=== PATIENT | male | born 1975 | race Caucasian/White ===

== ENCOUNTER 2025-05-29 04:01 | Emergency (ER) | payer BC, OTHER ==
[~2025-05-29] VITALS: Ht 172.7 cm; Wt 82.3 kg
--- NOTE | 2025-05-29 04:28 | ED.PDOC ---
History of Present Illness HPI Comments 50-year-old male with a history of GERD, kidney stones and skin cancer in remission brought in by family complaining of left-sided abdominal pain radiating to the left flank, onset around 2:30 a.m., associated with nausea. Pain is severe despite IM Toradol administered by family. He denies any fever, vomiting, diarrhea, constipation, dysuria or hematuria. Time Seen by MD: 04:16 Allergies: Coded Allergies: NO KNOWN ALLERGIES (Unverified , 05/29/25) Home Meds Active Scripts Tamsulosin Hcl (Flomax) 0.4 Mg Cap, 1 CAP PO DAILY, #14 CAP 11 Refills One p.o. daily, 30 minutes after same meal. Take until pain resolves. Prov:VIVEK PELLETIER MD 05/29/25 Hydrocodone-Acetaminophen (Hydrocodone Bitartrate/AC 5-325 mg) 1 Tab Tab, 1-2 TAB PO Q6HP PRN, #30 TAB Prn pain Prov:VIVEK PELLETIER MD 05/29/25 Ibuprofen (Ibuprofen) 800 Mg Tab, 800 MG PO Q8HP PRN, #30 TAB Prn pain. Take with food. Prov:VIVEK PELLETIER MD 05/29/25 Past Medical History PAST MEDICAL HISTORY: GERD, Kidney Stones Past Medical History (Other): Right inguinal hernia, hiatal hernia, finding of right kidney hematoma on imaging performed 2 months ago at another facility Surgical History (Other): ACL repair, lithotripsy Family History Family History: Reviewed,noncontributory to illness Social History Smoker: Non-Smoker Alcohol: Denies ETOH Use Drugs: Denies Drug Use Lives In: Home All Other Systems: Reviewed and Negative (Comprehensive systems review obtained and negative except for what is stated in the HPI.) Physical Exam General Appearance: Mild Distress HEENT: Other (Pupils and face symmetric. Moist mucous membranes.) Neck: Full Range of Motion, Normal Inspection Respiratory: Lungs Clear, No Accessory Muscle Use, No Respiratory Distress, Normal Breath Sounds Cardiovascular: No Edema, No JVD, Regular Rate/Rhythm Breast Exam: Deferred Gastrointestinal: Soft, Other (Pain is localized to right mid abdominal and right flank areas. Palpation of these areas does not change the pain.) Genitalia: Deferred Pelvic: Deferred Rectal: Deferred Extremities: Normal inspection, Normal range of motion, Non-tender, No pedal edema Neurologic: Alert (Oriented x4), Normal Affect, Normal Mood, Other (Ambulatory) Cerebellar Function: NOT DONE Reflexes: NOT DONE Skin: Dry, Normal Color, Warm Lymphatic: NOT DONE Was a procedure done? Was a procedure done?: No Differential Dx Considerations may include: Kidney stone with colic, gastritis, enteritis, constipation, bowel obstruction, ileus, UTI, among others X-Ray, Labs, Meds, VS Vital Signs Date Time Temp Pulse Resp B/P (MAP) Pulse Ox O2 Delivery O2 Flow Rate FiO2 05/29/25 05:19 68 14 97 Room Air* 0 21 05/29/25 05:18 97.8 68 14 157/110 (126) 97 97.8 05/29/25 05:04 70 18 135/82 05/29/25 04:41 97.7 67 18 137/92 (107) 95 97.7 Lab Test 05/29/25 04:45 05/29/25 04:44 Range/Units White Blood Count 5.5 4.4-10.8 10^3/uL Red Blood Count 5.52 4.5-5.90 10^6/uL Hemoglobin 16.5 13.5-17.5 g/dL Hematocrit 47.6 41.0-53.0 % Mean Corpuscular Volume 86.3 80.0-100.0 fL Mean Corpuscular Hemoglobin 29.9 28.0-32.0 pg Mean Corpuscular Hemoglobin Concent 34.6 32.0-36.0 g/dL Red Cell Distribution Width 14.1 11.8-14.3 % Platelet Count 218 140-450 10^3/uL Mean Platelet Volume 6.8 L 6.9-10.8 fL Neutrophils (%) (Auto) 50.3 37.0-80.0 % Lymphocytes (%) (Auto) 37.4 10.0-50.0 % Monocytes (%) (Auto) 9.2 0.0-12.0 % Eosinophils (%) (Auto) 2.8 0.0-7.0 % Basophils (%) (Auto) 0.3 0.0-2.0 % Neutrophils # (Auto) 2.8 1.6-8.6 10 ^3/uL Lymphocytes # (Auto) 2.1 0.4-5.4 10 ^3/uL Monocytes # (Auto) 0.5 0-1.3 10 ^3/uL Eosinophils # (Auto) 0.2 0-0.8 10 ^3/uL Basophils # (Auto) 0 0-0.2 10 ^3/uL Nucleated Red Blood Cells 0.2 % Sodium Level 139 136-145 mmol/L Potassium Level 4.1 3.5-5.1 mmol/L Chloride Level 105 98-107 mmol/L Carbon Dioxide Level 26 20-31 mmol/L Anion Gap 8 5-15 Blood Urea Nitrogen 12 9-23 mg/dL Creatinine 1.11 0.700-1.30 mg/dL Glomerular Filtration Rate Calc 81 >90 mL/min BUN/Creatinine Ratio 10.8 10.0-20.0 Serum Glucose 104 74-106 mg/dL Calcium Level 9.3 8.7-10.4 mg/dL Total Bilirubin 0.6 0.2-1.0 mg/dL Aspartate Amino Transferase (AST) 34 13-40 U/L Alanine Aminotransferase (ALT) 55 H 7-40 U/L Alkaline Phosphatase 79 46-116 U/L Total Protein 7.3 5.7-8.2 g/dL Albumin 4.6 3.2-4.8 g/dL Urine Color Yellow Yellow Urine Clarity Clear Clear Urine pH 6.0 5.0-9.0 Urine Specific [place] 1.025 1.001-1.035 Urine Protein Negative Negative Urine Ketones Trace Negative Urine Blood 3+ H Negative /uL Urine Nitrite Negative Negative Urine Bilirubin Negative Negative Urine Urobilinogen Normal Negative mg/dL Urine Leukocyte Esterase Negative Negative /uL Urine RBC 292 0 - 3 /hpf Urine Microscopic WBC 1 0-3 /HPF Urine Squamous Epithelial Cells None seen <5 /hpf Urine Bacteria None seen None Seen /hpf Urine Mucus Few None Seen Urine Glucose Normal Normal mg/dL Current Medications Medications (Trade) Dose Ordered Sig/Gage Route Start Time Stop Time Status Last Admin Sodium Chloride 1,000 ml @ 1,000 mls/hr Q1H ONCE IV 05/29/25 04:30 05/29/25 05:29 DC 05/29/25 05:03 Morphine Sulfate 4 mg ONCE ONCE IV 05/29/25 04:30 05/29/25 04:31 DC 05/29/25 05:04 Ondansetron HCl (Zofran) 4 mg ONCE ONCE IV 05/29/25 04:30 05/29/25 04:31 DC 05/29/25 04:30 [place] [address] Ph: [phone] DIAGNOSTIC IMAGING Diagnostic Imaging Report : [id number] Signed PATIENT: CAPO FUENTES ACCT: [id number] UNIT: [id number] : 1975 LOC: ER ROOM / BED: / AGE / SEX: 50 / M ADM STATUS: REG ER SERVICE 042 ORDERING PHYSICIAN: VIVEK PELLETIER MD PROCEDURE(s): ABPL - CT AB PEL WO CON-NO ORAL OR IV REASON: L flank pain r/o stone ORDER NUMBER(s): [id number], ACCESSION NUMBER(s): [id number] EXAM: CT CT AB PEL WO CON-NO ORAL OR IV HISTORY: L flank pain r/o stone COMPARISON: None TECHNIQUE: Helical CT images of the abdomen and pelvis were performed without contrast. Sagittal and coronal reformatted images were obtained. This CT exam was performed using one or more of the following dose reduction techniques: Automated exposure control, adjustment of the mA and/or kV according to patient size, or use of iterative reconstruction technique. Radiation Dose: CT Abdomen/Pelvis: CTDIvol 11.4 mGy, DLP 174.74 mGy*cm. FINDINGS: Urinary tract: There is a left ureteropelvic junction 2 mm calculus with associated mild left hydronephrosis. No right renal or ureteral calculi, hydronephrosis, or hydroureter. No urinary bladder calculi. The urinary bladder is decompressed. The prostate is moderately enlarged. Miscellaneous: There is bilateral gynecomastia. The heart is not enlarged. The lung bases are clear. The spleen measures 12.8 cm longitudinal. The noncontrast liver, pancreas, gallbladder, and adrenal glands are unremarkable. There is a small fatty umbilical hernia. No abdominal aortic aneurysm. No abnormal bowel dilatation, free air, free fluid, or suspicious adenopathy. The appendix is not dilated and does not appear inflamed. There is small fatty right inguinal indirect hernia. There is lumbar degenerative disc disease and facet arthropathy with multilevel significant neural foraminal stenosis bilaterally. IMPRESSION: 1. Mild left hydronephrosis secondary to a 2 mm ureteropelvic junction calculus. 2. Mild splenomegaly. 3. Moderate prostatic enlargement. 4. Lumbar degenerative disc disease and facet arthropathy with multilevel significant neural foraminal stenosis bilaterally. Consider follow-up noncontrast MRI of the lumbar spine for better characterization on an outpatient basis, especially if the patient complains of lower extremity radicular symptoms. 5. No evidence of bowel obstruction, acute appendicitis, or other acute process in the abdomen or pelvis. X-Ray, Labs, Meds, VS Comment 50-year-old male with a history of GERD, kidney stones, skin cancer in remission, right inguinal and hiatal hernias brought in by family complaining of left-sided abdominal and flank pain Vitals remarkable for BP 137/92 Exam: Pain localized to left mid abdominal and flank areas. Palpation of these areas does not change the pain Rhythm strip independently interpreted by me: Sinus rhythm, rate 67, no ectopy. CT abdomen and pelvis IMPRESSION: 1. Mild left hydronephrosis secondary to a 2 mm ureteropelvic junction calculus. 2. Mild splenomegaly. 3. Moderate prostatic enlargement. 4. Lumbar degenerative disc disease and facet arthropathy with multilevel significant neural foraminal stenosis bilaterally. Consider follow-up noncontrast MRI of the lumbar spine for better characterization on an outpatient basis, especially if the patient complains of lower extremity radicular symptoms. 5. No evidence of bowel obstruction, acute appendicitis, or other acute process in the abdomen or pelvis. CBC and CMP unremarkable, UA positive for blood and RBCs Patient treated with the following in the ED: 1 L 0.9 normal saline IV bolus, morphine 4 mg IV, Zofran 4 mg IV, magnesium rider 2 g IV On re-evaluation, patient states pain has improved. Vitals were stable. Patient appears stable for discharge with close outpatient follow-up with his primary physician for referral to Urology. Alternatively, he will also be referred to Dr. Goldstein. Rx [place], ibuprofen, Flomax Time of 1ST Reevaluation: 04:32 Reevaluation 1ST: Unchanged Patient Education/Counseling: Diagnosis, Treatment, Need For Follow Up Family Education/Counseling: Diagnosis, Treatment, Need For Follow Up SEPSIS Sepsis Screen Physician Orders Ct Ab Pel Wo Con-No Oral Or Iv (05/29/25 04:22) Magnesium Sulfate 1gm/100ml (05/29/25 04:30) Vital Signs Date Time Temp Pulse Resp B/P (MAP) Pulse Ox O2 Delivery O2 Flow Rate FiO2 05/29/25 05:19 68 14 97 Room Air* 0 21 05/29/25 05:18 97.8 68 14 157/110 (126) 97 97.8 05/29/25 05:04 70 18 135/82 05/29/25 04:41 97.7 67 18 137/92 (107) 95 97.7 Laboratory Tests Test 05/29/25 04:45 White Blood Count 5.5 10^3/uL (4.4-10.8) Medications Medications Dose Ordered Sig/Gage Route Start Time Stop Time Status Last Admin Dose Admin Morphine Sulfate 4 mg ONCE ONCE IV 05/29/25 04:30 05/29/25 04:31 DC 05/29/25 05:04 Ondansetron HCl 4 mg ONCE ONCE IV 05/29/25 04:30 05/29/25 04:31 DC 05/29/25 04:30 Sodium Chloride 1,000 ml @ 1,000 mls/hr Q1H ONCE IV 05/29/25 04:30 05/29/25 05:29 DC 05/29/25 05:03 Departure 1 Departure Time of Disposition: 06:00 Impression: Primary Impression: Hydronephrosis concurrent with and due to calculi of kidney and ureter Disposition: 01 HOME / SELF CARE / HOMELESS Condition: Stable Referrals: JOHNATHAN GOLDSTEIN MD Additional Instructions: Your blood tests were unremarkable. Your urine test showed blood, consistent with what we see when kidney stones or passing. There was no evidence of a urine infection. Your CT scan showed that your passing a kidney stone. The report is enclosed below. I have prescribed medication for your symptoms. Follow-up with your primary doctor in 1-2 days for referral to an urologist for further evaluation. Alternatively, follow-up directly with Dr. Goldstein. [address] [address] Ph: [phone] DIAGNOSTIC IMAGING Diagnostic Imaging Report : [id number] Signed PATIENT: CAPO FUENTES ACCT: [id number] UNIT: [id number] : 1975 LOC: ER ROOM / BED: / AGE / SEX: 50 / M ADM STATUS: REG ER SERVICE 0422 ORDERING PHYSICIAN: VIVEK PELLETIER MD PROCEDURE(s): ABPL - CT AB PEL WO CON-NO ORAL OR IV REASON: L flank pain r/o stone ORDER NUMBER(s): [id number], ACCESSION NUMBER(s): [id number] EXAM: CT CT AB PEL WO CON-NO ORAL OR IV HISTORY: L flank pain r/o stone COMPARISON: None TECHNIQUE: Helical CT images of the abdomen and pelvis were performed without contrast. Sagittal and coronal reformatted images were obtained. This CT exam was performed using one or more of the following dose reduction techniques: Automated exposure control, adjustment of the mA and/or kV according to patient size, or use of iterative reconstruction technique. Radiation Dose: CT Abdomen/Pelvis: CTDIvol 11.4 mGy, DLP 174.74 mGy*cm. FINDINGS: Urinary tract: There is a left ureteropelvic junction 2 mm calculus with associated mild left hydronephrosis. No right renal or ureteral calculi, hydronephrosis, or hydroureter. No urinary bladder calculi. The urinary bladder is decompressed. The prostate is moderately enlarged. Miscellaneous: There is bilateral gynecomastia. The heart is not enlarged. The lung bases are clear. The spleen measures 12.8 cm longitudinal. The noncontrast liver, pancreas, gallbladder, and adrenal glands are unremarkable. There is a small fatty umbilical hernia. No abdominal aortic aneurysm. No abnormal bowel dilatation, free air, free fluid, or suspicious adenopathy. The appendix is not dilated and does not appear inflamed. There is small fatty right inguinal indirect hernia. There is lumbar degenerative disc disease and facet arthropathy with multilevel significant neural foraminal stenosis bilaterally. IMPRESSION: 1. Mild left hydronephrosis secondary to a 2 mm ureteropelvic junction calculus. 2. Mild splenomegaly. 3. Moderate prostatic enlargement. 4. Lumbar degenerative disc disease and facet arthropathy with multilevel significant neural foraminal stenosis bilaterally. Consider follow-up noncontrast MRI of the lumbar spine for better characterization on an outpatient basis, especially if the patient complains of lower extremity radicular symptom s. 5. No evidence of bowel obstruction, acute appendicitis, or other acute process in the abdomen or pelvis. e-Prescriptions Tamsulosin Hcl (Flomax) 0.4 Mg Cap 1 CAP PO DAILY, #14 CAP 11 Refills One p.o. daily, 30 minutes after same meal. Take until pain resolves. Prov: VIVEK PELLETIER MD 05/29/25 Hydrocodone-Acetaminophen (Hydrocodone Bitartrate/AC 5-325 mg) 1 Tab Tab 1-2 TAB PO Q6HP PRN, #30 TAB Prn pain Prov: VIVEK PELLETIER MD 05/29/25 Ibuprofen (Ibuprofen) 800 Mg Tab 800 MG PO Q8HP PRN, #30 TAB Prn pain. Take with food. Prov: VIVEK PELLETIER MD 05/29/25 Discharged With: Relative Critical Care Note Critical Care Time?: No Stability Stability form required: No Heart Score Heart Score: Heart Score Response (Comments) Value History N/A 0 EKG N/A 0 Age N/A 0 Risk Factors N/A 0 Troponin N/A 0 Total 0 VIVEK PELLETIER MD May 29, 2025 04:28
[2025-05-29] MEDS: ONDANSETRON HCL 4 MG/2 ML VIAL IV ONE (04:30)
[2025-05-29] MEDS: SODIUM CHLORIDE 0.9% 1,000 ML IV ONE (05:03)
[2025-05-29 05:04] LABS: Hematocrit 47.6 % (41.0-53.0); Hemoglobin 16.5 g/dL (13.5-17.5); Mean Corpuscular Hemoglobin 29.9 pg (28.0-32.0); Mean Corpuscular Volume 86.3 fL (80.0-100.0); Nucleated Red Blood Cells % 0.2 %
[2025-05-29] MEDS: MORPHINE SULFATE 4 MG/ML SYR/VIAL IV ONE (05:04)
[2025-05-29 05:07] LABS: Urine Protein, UAD Negative (Negative)
[2025-05-29] MEDS ORDERED: IBUP-1456 PO (05:12)
[2025-05-29] MEDS ORDERED: TAMS-35 PO (05:12)
[2025-05-29] MEDS ORDERED: HYDR-4902 PO (05:12)
[2025-05-29 05:18] VITALS: TEMP 97.8
[2025-05-29 05:19] VITALS: PULSE 68; RESP 14; O2SAT 97
[2025-05-29 05:21] LABS: Albumin 4.6 g/dL (3.2-4.8); Alkaline Phosphatase 79 U/L (46-116); Anion Gap 8 (5-15); BUN/Creatinine Ratio 10.8 (10.0-20.0); Blood Urea Nitrogen 12 mg/dL (9-23); Calcium 9.3 mg/dL (8.7-10.4); Carbon Dioxide 26 mmol/L (20-31); Chloride 105 mmol/L (98-107); Glucose 104 mg/dL (74-106); Potassium 4.1 mmol/L (3.5-5.1); Sodium 139 mmol/L (136-145); Total Protein 7.3 g/dL (5.7-8.2)
[2025-05-29 05:22] LABS: Bilirubin, Total 0.6 mg/dL (0.2-1.0)
[2025-05-29 05:29] LABS: Alanine Aminotransferase 55 U/L (7-40)
--- NOTE | 2025-05-29 06:04 | DVH ---
EXAM: CT CT AB PEL WO CON-NO ORAL OR IV HISTORY: L flank pain r/o stone COMPARISON: None TECHNIQUE: Helical CT images of the abdomen and pelvis were performed without contrast. Sagittal and coronal ref ormatted images were obtained. This CT exam was performed using one or more of the following dose red uction techniques: Automated exposure control, adjustment of the mA and/or kV according to patient si ze, or use of iterative reconstruction technique. Radiation Dose: CT Abdomen/Pelvis: CTDIvol 11.4 mGy, DLP 174.74 mGy*cm. FINDINGS: Urinary tract: There is a left ureteropelvic junction 2 mm calculus with associated mild left hydrone phrosis. No right renal or ureteral calculi, hydronephrosis, or hydroureter. No urinary bladder calc emil. The urinary bladder is decompressed. The prostate is moderately enlarged. Miscellaneous: There is bilateral gynecomastia. The heart is not enlarged. The lung bases are clear . The spleen measures 12.8 cm longitudinal. The noncontrast liver, pancreas, gallbladder, and adrenal glands are unremarkable. There is a small fatty umbilical hernia. No abdominal aortic aneurysm. No abnormal bowel dilatation, free air, free fluid, or suspicious adenopathy. The appendix is not dilat ed and does not appear inflamed. There is small fatty right inguinal indirect hernia. There is lumbar degenerative disc disease and facet arthropathy with multilevel significant neural foraminal stenosi s bilaterally. IMPRESSION: 1. Mild left hydronephrosis secondary to a 2 mm ureteropelvic junction calculus. 2. Mild splenomegaly. 3. Moderate prostatic enlargement. 4. Lumbar degenerative disc disease and facet arthropathy with multilevel significant neural foramina l stenosis bilaterally. Consider follow-up noncontrast MRI of the lumbar spine for better characteri zation on an outpatient basis, especially if the patient complains of lower extremity radicular sympt oms. 5. No evidence of bowel obstruction, acute appendicitis, or other acute process in the abdomen or pel vis.
[2025-05-29] MEDS: MAGNESIUM SULFATE 1GM/100ML 100 ML IV SCH (07:33)
[2025-05-29 08:05] VITALS: PULSE 63; RESP 14; O2SAT 95
[2025-05-29 08:59] VITALS: BP 109/75; PULSE 69; RESP 12
== END 2025-05-29 09:44 | disposition home or self-care (01) ==
LOC: ER 04:01
DX: N13.2 Hydronephrosis with renal and ureteral calculous obstruction (principal); K21.9 Gastro-esophageal reflux disease without esophagitis; Z98.890 Other specified postprocedural states; Z87.442 Personal history of urinary calculi; Z79.899 Other long term (current) drug therapy; Z85.828 Personal history of other malignant neoplasm of skin
CPT/HCPCS: 36415; 74176; 80053; 81001; 85025; 96361; 96365; 96366; 96375; 99285; J2270; J2405; J3475; J7030

== ENCOUNTER → 2025-07-29 | Outpatient (CLI) | payer BC ==
[~2025-07-29] MED LIST: HYDR-4902 PO; IBUP-1456 PO; TAMS-35 PO
[2025-07-29 09:16] LABS: Hematocrit 52.1 % (41.0-53.0); Hemoglobin 18.1 g/dL (13.5-17.5); Mean Corpuscular Hemoglobin 31.2 pg (28.0-32.0); Mean Corpuscular Volume 89.9 fL (80.0-100.0); Nucleated Red Blood Cells % 0.2 %
[2025-07-29 09:49] LABS: Albumin 4.7 g/dL (3.2-4.8); Alkaline Phosphatase 74 U/L (46-116); Anion Gap 5 (5-15); BUN/Creatinine Ratio 9.7 (10.0-20.0); Blood Urea Nitrogen 10 mg/dL (9-23); Calcium 9.6 mg/dL (8.7-10.4); Carbon Dioxide 30 mmol/L (20-31); Chloride 103 mmol/L (98-107); Glucose 95 mg/dL (74-106); Potassium 5.0 mmol/L (3.5-5.1); Sodium 138 mmol/L (136-145); Total Protein 7.9 g/dL (5.7-8.2); Triglycerides 145 mg/dL (< 150)
[2025-07-29 09:51] LABS: Alanine Aminotransferase 42 U/L (7-40); Bilirubin, Total 1.3 mg/dL (0.2-1.0); Cholesterol 203 mg/dL (< 200); HDL Cholesterol 39 mg/dL (40-59)
== END | disposition home or self-care (01) ==
LOC: LAB 08:38
PROVIDERS: ATTEND Internal Medicine
DX: E78.2 Mixed hyperlipidemia (principal); R94.4 Abnormal results of kidney function studies; R17 Unspecified jaundice
CPT/HCPCS: 36415; 80053; 80061; 85025

== ENCOUNTER 2025-08-13 07:30 | Day surgery (SDC) | payer BC ==
[2025-08-12 14:12] LABS: Hematocrit 50.3 % (41.0-53.0); Hemoglobin 17.3 g/dL (13.5-17.5); Mean Corpuscular Hemoglobin 30.8 pg (28.0-32.0); Mean Corpuscular Volume 89.3 fL (80.0-100.0); Nucleated Red Blood Cells % 0.0 %
[2025-08-12 14:26] LABS: INR 1.05 (0.9-1.15); Partial Thromboplastin Time 28.3 SEC (24.5-34.5); Prothrombin Time 11.1 sec (9.3-11.8)
[2025-08-12 14:38] LABS: Alanine Aminotransferase 38 U/L (7-40); Albumin 4.7 g/dL (3.2-4.8); Alkaline Phosphatase 70 U/L (46-116); Anion Gap 8 (5-15); BUN/Creatinine Ratio 13.0 (10.0-20.0); Bilirubin, Total 1.2 mg/dL (0.2-1.0); Blood Urea Nitrogen 13 mg/dL (9-23); Calcium 9.5 mg/dL (8.7-10.4); Carbon Dioxide 29 mmol/L (20-31); Chloride 101 mmol/L (98-107); Glucose 89 mg/dL (74-106); Potassium 4.1 mmol/L (3.5-5.1); Sodium 138 mmol/L (136-145); Total Protein 7.7 g/dL (5.7-8.2)
[~2025-08-13] VITALS: Ht 172.7 cm; Wt 79.8 kg
[~2025-08-13 07:30] MED LIST changes: +COEN30CA7 PO; +FAMO-161 PO; -HYDR-4902 PO; -IBUP-1456 PO; +MAGN400T40 OR; +MISC-2030 PO; +OMEP20TA PO; -TAMS-35 PO; +VITALIQ10 XX
[2025-08-13] MEDS: MIDAZOLAM HCL 2MG/2ML 2ml VIAL (1mg/ml) ONE (09:07)
[2025-08-13] MEDS: fentaNYL CITRATE 100 MCG/2 ML VL ONE (09:08)
[2025-08-13 09:21] VITALS: PULSE 77; RESP 16; O2SAT 95
[2025-08-13 09:24] VITALS: PULSE 77; RESP 16; TEMP 98.6; O2SAT 95
--- NOTE | 2025-08-13 09:24 | DVHNC2 ---
Procedure - DATE OF SERVICE: 2024 PROCEDURE PERFORMED BY: Andria Veliz MD REFERRING PROVIDER: Nicole Fisher MD PROCEDURE PERFORMED: 1. Colonoscopy with moderate sedation 2. Colonoscopy with cold snare polypectomy PREPROCEDURE DIAGNOSIS: 1. Colon cancer screening 2. Bloating POSTPROCEDURE DIAGNOSIS: 1. 8 mm ascending colon polyp removed with cold snare 2. Internal hemorrhoids INDICATION FOR PROCEDURE: Patient is a 50-year-old male who presents for outpatient colonoscopy for screening complaints of bloating MEDICATIONS USED: 6mg of Versed IV and 100 mcg of fentanyl IV DETAILS OF THE PROCEDURE: Informed consent was obtained after risks, benefits, and alternatives, were discussed at length with the patient, the patient gave consent to the procedure as well as a medication used for sedation. She was brought into the GI suite and placed in the left lateral decubitus position. Digital rectal exam showed internal and external hemorrhoids. An Olympus variable torsion pediatric colonoscope was inserted into the rectum and advanced to the cecum. The cecum was identified by the ileocecal valve and appendiceal orifice. The prep was good with only small amounts of stool. There were no large polyps masses strictures or arteriovenous malformation seen. There was a 8 mm polyp in the ascending colon removed with cold snare polypectomy completely. More than 6 minutes withdrawal time was noted. Retroflexion showed internal hemorrhoids. The patient tolerated the procedure well. START TIME: 913 CECUM TIME: 914 END TIME: 921 [place] BOWEL PREP SCORE: 8 IMPRESSION: 1. Colon polyp and internal hemorrhoids RECOMMENDATIONS: 1. Repeat colonoscopy in five years unless otherwise indicated by symptoms or family history 2. High-fiber diet 3. Follow up in GI clinic for procedure and pathology results 4. Follow up with primary care physician as indicated I would like to thank Dr. Fisher for this referral ANDRIA VELIZ MD Aug 13, 2025 09:24
[2025-08-13 09:54] VITALS: BP 105/61; PULSE 78; RESP 16; O2SAT 94
== END 2025-08-13 10:14 | disposition home or self-care (01) ==
LOC: SUR 07:30
PROVIDERS: ATTEND Specialist
DX: R14.0 Abdominal distension (gaseous) (principal); D12.2 Benign neoplasm of ascending colon; K64.8 Other hemorrhoids; K64.4 Residual hemorrhoidal skin tags
CPT/HCPCS: 36415; 45385; 80053; 85025; 85610; 85730; 88305; J2250; J3010; J7030